=== PATIENT | male | born 1995 | race American Indian/Alaskan Native ===

== ENCOUNTER 2018-06-07 11:31 | Emergency (ER) | payer OTHER ==
--- NOTE | 2018-06-07 11:51 | Emergency Department Report ---
Chief Complaint: Skin Rash Stated Complaint: BACK PAIN Time Seen by Provider: 06/07/18 11:47 - HPI History of Present Illness: Pt c/o rash for the last two days he states it has been itching, dry, and redness no penile discharge, no bumps OTC antifungals has improved itching and irritation (+) sexually active, does not use protection MSE complete MSE screening note: Focused history and physical exam performed. ED Disposition for MSE Condition: Stable
--- NOTE | 2018-06-07 13:47 | Emergency Department Report ---
ED Rash HPI - HPI Chief Complaint: Skin Rash Stated Complaint: BACK PAIN Time Seen by Provider: 06/07/18 11:47 Duration: 3 Days Rash Symptoms: Yes Itching, No Facial Swelling, No Tongue/Oral Swelling, No Breathing Difficulties, No Choking Sensation, No Wheezing/Dyspnea, No Peeling, No Blistering, No Fever, No Lightheaded, No Malaise, No Myalgias Severity: mild Other History: Patient is a 23-year-old male who presents with a rash to his penis. This actually just a red excoriated area there is no discrete lesion. Patient denies dysuria. He denies any discharge. He is sexually active with one female. ED Review of Systems ROS: Stated complaint: BACK PAIN Other details as noted in HPI Comment: All other systems reviewed and negative Constitutional: denies: chills Eyes: denies: eye pain ENT: denies: ear pain Respiratory: denies: orthopnea Cardiovascular: denies: dyspnea on exertion Endocrine: denies: excessive sweating Gastrointestinal: denies: nausea, vomiting Genitourinary: denies: urgency, dysuria Musculoskeletal: denies: back pain Skin: as per HPI, rash Neurological: denies: headache, weakness Psychiatric: denies: depression ED Past Medical Hx - Past Medical History Previous Medical History?: No - Surgical History Past Surgical History?: Yes Additional Surgical History: undescended testicle - Social History Smoking Status: Never Smoker Substance Use Type: Marijuana Rash Exam - Exam General: Vital signs noted. No distress. Alert and acting appropriately. HEENT: No Periorbital Edema, No Conjuctival Injection, No Chemosis, No Perioral Edema, No Tongue Edema, No Uvular Edema, No Compromised Airway, No Drooling Lungs: Yes Good Air Exchange, No Wheezes, No Ronchi, No Stridor, No Cough, No Labored Respirations, No Retractions, No Use of Accessory Muscles, No Other Abnormal Lung Sounds Heart: Yes Regular, No Murmur Skin: Yes Other (DRY SKIN, IRRITATION ON DISTAL PENIS ONLY), No Urticarial Rash Other: Positive: Abdomen Normal, Neurologic Normal, Musculoskeletal Normal ED Course Vital Signs 06/07/18 11:47 Temperature 97.9 F Pulse Rate 66 Respiratory 18 Rate Blood Pressure 138/81 O2 Sat by Pulse 100 Oximetry ED Medical Decision Making - Medical Decision Making RASH NO DYSURIA NO DISCHARGE Critical care attestation.: If time is entered above; I have spent that time in minutes in the direct care of this critically ill patient, excluding procedure time. ED Disposition Clinical Impression: Rash Disposition: DC-01 TO HOME OR SELFCARE Is pt being admited?: No Does the pt Need Aspirin: No Condition: Stable Instructions: Acute Rash (ED) Additional Instructions: TREAT WE DISCUSSED IF PERSISTS FOLLOW UP WITH DERMATOLOGY MD REFERRAL BELOW Referrals: [facility] [Other] - 3-5 Days GUICHO MALIN MD [Referring] - 3-5 Days Time of Disposition: 13:44
== END 2018-06-07 14:04 | disposition home or self-care (01) ==
LOC: ED 11:31
CPT/HCPCS: 99282